=== PATIENT | female | born 1970 | race Caucasian/White ===

== ENCOUNTER 2016-05-10 15:37 | Emergency (ER) | payer BC ==
[2016-05-10] MEDS ORDERED: PREDNISONE 50 MG TAB ONE (17:30)
[2016-05-10] MEDS ORDERED: DUONEB INH ONE (17:44)
[2016-05-10] MEDS ORDERED: Furosemide 100 MG/10 ML VIAL ONE (19:31)
== END 2016-05-10 20:00 | disposition home or self-care (01) ==
LOC: ER 15:37
DX: J81.1 Chronic pulmonary edema (principal); J45.901 Unspecified asthma with (acute) exacerbation
CPT/HCPCS: 36415; 74022; 80053; 80162; 81001; 82553; 83690; 83880; 84484; 84703; 85025; 93005; 94640; 96374